=== PATIENT | male | born 1990 | race Two or more races ===

== ENCOUNTER → 2023-07-15 | Outpatient (CLI) | payer MEDICAID ==
[~2023-07-15] VITALS: Ht 167.6 cm; Wt 61.7 kg
== END | disposition home or self-care (01) ==
LOC: Rad HDHVI 08:26
PROVIDERS: ATTEND Internal Medicine Cardiovascular Disease
DX: I13.2 Hypertensive heart and chronic kidney disease with heart failure and with stage 5 chronic kidney disease, or end stage renal disease (principal); I50.9 Heart failure, unspecified; N18.6 End stage renal disease; E78.5 Hyperlipidemia, unspecified; Z82.49 Family history of ischemic heart disease and other diseases of the circulatory system
CPT/HCPCS: 78452; 93017; 96374; A9500

== ENCOUNTER → 2023-11-16 | Outpatient (CLI) | payer MEDICAID ==
[~2023-11-16] MED LIST: ASPI-543 PO; ATOR40TA52 PO; CALC0.25 PO; CALC667C PO; CLON0.1T PO; FURO40TA4 PO; METO-158 PO; METOPROLOL SUCCINATE XL 50 MG TAB PO ONE; PANT40T PO; SACU1TAB7 PO; cloNIDine HCL 0.1 MG TAB PO ONE
[2023-11-16 11:50] VITALS: BP 201/124; PULSE 118; RESP 16; O2SAT 99
[2023-11-16] MEDS: cloNIDine HCL 0.1 MG TAB ONE ×2 (12:25→13:40)
[2023-11-16] MEDS: METOPROLOL SUCCINATE XL 50 MG TAB PO ONE (12:26)
[2023-11-16] MEDS: cloNIDine HCL 0.1 MG TAB PO ONE (13:40)
[2023-11-16 14:56] VITALS: BP 187/102; PULSE 102; RESP 16; O2SAT 99
== END | disposition home or self-care (01) ==
LOC: Rad HDHVI 11:48
PROVIDERS: ATTEND Internal Medicine Cardiovascular Disease
DX: Z01.818 Encounter for other preprocedural examination (principal); R00.0 Tachycardia, unspecified; R94.31 Abnormal electrocardiogram [ECG] [EKG]; I11.0 Hypertensive heart disease with heart failure; I50.23 Acute on chronic systolic (congestive) heart failure; R06.02 Shortness of breath
CPT/HCPCS: 71046; 93005; G0463

== ENCOUNTER 2023-11-19 07:53 | Day surgery (SDC) | payer MEDICAID ==
[2023-11-17 10:52] LABS: Basophils # (auto) 0.2 10 ^3/uL (0-0.2); Basophils % (auto) 3.1 % (0.0-2.0); Eosinophils # (auto) 0.3 10 ^3/uL (0-0.8); Eosinophils % (auto) 3.9 % (0.0-7.0); Hematocrit 29.7 % (41.0-53.0); Hemoglobin 10.2 g/dL (13.5-17.5); Lymphocytes # (auto) 1.3 10 ^3/uL (0.4-5.4); Lymphocytes % (auto) 20.7 % (10.0-50.0); Mean Corpuscular Hemoglobin 32.1 pg (28.0-32.0); Mean Corpuscular Hgb Conc. 34.5 g/dL (32.0-36.0); Mean Corpuscular Volume 93.2 fL (80.0-100.0); Monocytes # (auto) 0.7 10 ^3/uL (0-1.3); Monocytes % (auto) 10.7 % (0.0-12.0); Neutrophils % (auto) 61.6 % (37.0-80.0); Platelet Count (auto) 186 10^3/uL (140-450); Red Blood Cells 3.19 10^6/uL (4.5-5.90); Red Cell Distribution Width 17.2 % (11.8-14.3); White Blood Cell 6.5 10^3/uL (4.4-10.8)
[2023-11-17 11:22] LABS: Anion Gap 6 (5-15); Carbon Dioxide 30 mmol/L (20-30); Chloride 98 mmol/L (98-107); Potassium 3.9 mmol/L (3.5-5.1); Sodium 134 mmol/L (136-145)
[2023-11-17 11:23] LABS: Calcium 9.6 mg/dL (8.7-10.4)
[2023-11-17 11:24] LABS: INR 1.08 (0.9-1.15); Partial Thromboplastin Time 31.3 SEC (24.5-34.5); Prothrombin Time 11.4 sec (9.3-11.8)
[2023-11-17 11:28] LABS: BUN/Creatinine Ratio 3.4 (10.0-20.0); Blood Urea Nitrogen 23 mg/dL (9-23); Glucose 97 mg/dL (74-106); Triglycerides 114 mg/dL (< 150)
[2023-11-17 11:29] LABS: LDL Cholesterol 111 mg/dL (< 100)
[2023-11-17 11:30] LABS: Cholesterol 201 mg/dL (< 200); HDL Cholesterol 70 mg/dL (40-59)
[~2023-11-19] VITALS: Ht 170.2 cm; Wt 64.4 kg
[~2023-11-19 07:53] MED LIST changes: -METOPROLOL SUCCINATE XL 50 MG TAB PO ONE; -cloNIDine HCL 0.1 MG TAB PO ONE
[2023-11-19] MEDS ORDERED: fentaNYL CITRATE 100 MCG/2 ML VL ONE (08:39)
[2023-11-19] MEDS ORDERED: ANGIOMAX 250 MG VIAL IV ONE (08:39)
[2023-11-19] MEDS ORDERED: LIDOCAINE 2%HCL (LOCAL ANESTH.) INJ 20ML MDV ONE (08:40)
[2023-11-19] MEDS ORDERED: SODIUM CHL 0.9% 0 ML ONE (08:40)
[2023-11-19] MEDS ORDERED: MIDAZOLAM HCL 2MG/2ML 2ml VIAL (1mg/ml) ONE (08:40)
[2023-11-19] MEDS ORDERED: IODIXANOL 320MG/ML 100ML BTL IV ONE (09:00)
[2023-11-19] MEDS ORDERED: hydrALAZINE HCL 20 MG/ML VL ONE (09:29)
[2023-11-19] MEDS ORDERED: SACUBITRIL-VALSARTAN 24mg/26mg TAB PO STA (12:07)
== END 2023-11-19 12:35 | disposition home or self-care (01) ==
LOC: CATH 07:53
PROVIDERS: ATTEND Internal Medicine Cardiovascular Disease
DX: R94.39 Abnormal result of other cardiovascular function study (principal); I13.11 Hypertensive heart and chronic kidney disease without heart failure, with stage 5 chronic kidney disease, or end stage renal disease; N18.6 End stage renal disease; Z79.82 Long term (current) use of aspirin; Z99.2 Dependence on renal dialysis
CPT/HCPCS: 36415; 80048; 80061; 85025; 85610; 85730; 93458; C1760; C1894; J0360; J2250; J3010; J7030; 99152; Q9967

== ENCOUNTER 2023-11-30 10:47 | Inpatient (IN) | payer MEDICAID ==
[~2023-11-30] VITALS: Ht 170.2 cm; Wt 65.7 kg
[2023-11-30] MEDS: ALBUTEROL SULF 2.5 MG/0.5ML(0.5%) NEB SOLN NEB ONE (13:17)
[2023-11-30 13:38] LABS: Basophils # (auto) 0.1 10 ^3/uL (0-0.2); Basophils % (auto) 1.3 % (0.0-2.0); Eosinophils # (auto) 0.2 10 ^3/uL (0-0.8); Eosinophils % (auto) 1.8 % (0.0-7.0); Hematocrit 27.2 % (41.0-53.0); Hemoglobin 9.5 g/dL (13.5-17.5); Lymphocytes # (auto) 1.4 10 ^3/uL (0.4-5.4); Lymphocytes % (auto) 15.6 % (10.0-50.0); Mean Corpuscular Hemoglobin 33.1 pg (28.0-32.0); Mean Corpuscular Hgb Conc. 34.8 g/dL (32.0-36.0); Monocytes # (auto) 0.6 10 ^3/uL (0-1.3); Monocytes % (auto) 6.3 % (0.0-12.0); Neutrophils # (auto) 6.6 10 ^3/uL (1.6-8.6); Platelet Count (auto) 259 10^3/uL (140-450); Red Blood Cells 2.86 10^6/uL (4.5-5.90); Red Cell Distribution Width 16.7 % (11.8-14.3); White Blood Cell 8.8 10^3/uL (4.4-10.8)
[2023-11-30 13:53] LABS: Alanine Aminotransferase 18 U/L (7-40); Albumin 4.2 g/dL (3.2-4.8); Alkaline Phosphatase 84 U/L (46-116); Anion Gap 12 (5-15); Aspartate Aminotransferase 11 U/L (13-40); BUN/Creatinine Ratio 4.2 (10.0-20.0); Blood Urea Nitrogen 51 mg/dL (9-23); Calcium 9.4 mg/dL (8.7-10.4); Carbon Dioxide 24 mmol/L (20-30); Chloride 100 mmol/L (98-107); Glucose 134 mg/dL (74-106); Potassium 5.5 mmol/L (3.5-5.1); Sodium 136 mmol/L (136-145)
[2023-11-30 13:54] LABS: Bilirubin, Total 0.4 mg/dL (0.2-1.0); Total Protein 6.3 g/dL (5.7-8.2)
[2023-11-30] MEDS: SODIUM ZIRCONIUM CYCL 10 GM PAK PO ONE (14:25)
[2023-11-30 15:29] LABS: COVID19 ANTIGEN SOFIA FIA NEGATIVE (NEGATIVE)
[2023-11-30] MEDS: cefTRIAXone 1GM/50ML D5W 50 ML IV ONE (17:18)
[2023-11-30] MEDS ORDERED: ONDANSETRON HCL 4 MG/2 ML VIAL IV PRN (17:30)
[2023-11-30] MEDS ORDERED: DOCUSATE SOD 100 MG CAP PO PRN (17:30)
[2023-11-30] MEDS ORDERED: HYDROcodone-ACET 5/325MG TAB PO PRN (17:30)
[2023-11-30] MEDS ORDERED: MORPHINE SULFATE INJ 2 MG/ml SYRG IV PRN (18:15)
[2023-11-30] MEDS ORDERED: NITROGLYCERIN 0.4 MG SL TAB SL PRN (18:15)
[2023-11-30] MEDS: SODIUM CHLOR 0.9% PF (SALINE LOCK) 10ML VIAL/SYR IV SCH (22:00)
[2023-11-30] MEDS: SEVELAMER 800 MG TAB PO SCH (22:55)
[2023-11-30] MEDS: amLODIPine BESYLATE 5 MG TAB PO ONE (22:55)
[2023-11-30] MEDS: FAMOTIDINE (10MG/ML) 2ML VL IV ONE (22:56)
[2023-11-30] MEDS: CARVEDILOL 12.5 MG TAB PO SCH (22:56)
[2023-11-30] MEDS: ATORVASTATIN 20 MG TAB PO SCH (22:57)
[2023-12-01] MEDS: hydrALAZINE HCL 20 MG/ML VL IV PRN (00:16)
[2023-12-01 04:03] LABS: Basophils # (auto) 0.2 10 ^3/uL (0-0.2); Basophils % (auto) 1.8 % (0.0-2.0); Eosinophils # (auto) 0.2 10 ^3/uL (0-0.8); Eosinophils % (auto) 2.4 % (0.0-7.0); Hemoglobin 9.8 g/dL (13.5-17.5); Lymphocytes # (auto) 1.3 10 ^3/uL (0.4-5.4); Lymphocytes % (auto) 15.2 % (10.0-50.0); Mean Corpuscular Hemoglobin 32.9 pg (28.0-32.0); Mean Corpuscular Hgb Conc. 33.7 g/dL (32.0-36.0); Mean Corpuscular Volume 97.7 fL (80.0-100.0); Monocytes # (auto) 0.5 10 ^3/uL (0-1.3); Monocytes % (auto) 6.5 % (0.0-12.0); Neutrophils # (auto) 6.2 10 ^3/uL (1.6-8.6); Neutrophils % (auto) 74.1 % (37.0-80.0); Nucleated Red Blood Cells % 0.1 %; Platelet Count (auto) 269 10^3/uL (140-450); Red Blood Cells 2.97 10^6/uL (4.5-5.90); Red Cell Distribution Width 17.2 % (11.8-14.3); White Blood Cell 8.4 10^3/uL (4.4-10.8)
[2023-12-01 04:18] LABS: Alanine Aminotransferase 14 U/L (7-40); Albumin 4.3 g/dL (3.2-4.8); Alkaline Phosphatase 83 U/L (46-116); Anion Gap 17 (5-15); Aspartate Aminotransferase 10 U/L (13-40); Bilirubin, Total 0.3 mg/dL (0.2-1.0); Blood Urea Nitrogen 54 mg/dL (9-23); Calcium 9.3 mg/dL (8.7-10.4); Carbon Dioxide 19 mmol/L (20-30); Chloride 99 mmol/L (98-107); Glucose 110 mg/dL (74-106); Sodium 135 mmol/L (136-145); Total Protein 6.5 g/dL (5.7-8.2)
[2023-12-01 04:45] LABS: Urine Bacteria None Seen /hpf (None Seen)
[2023-12-01] MEDS: hydrALAZINE HCL 20 MG/ML VL IV ONE (04:45)
[2023-12-01 04:50] LABS: Urine Blood TRACE /uL (Negative); Urine Clarity Clear (Clear); Urine Color Colorless (Yellow); Urine Protein, UAD 3+ (Negative); Urine Specific Gravity 1.007 (1.001-1.035); Urine Urobilinogen Normal (Negative); Urine WBC 3 /hpf (0 - 3)
[2023-12-01 08:50] VITALS: BP 169/99; PULSE 109; RESP 20; TEMP 98.2; O2SAT 99
[2023-12-01 09:33] VITALS: BP 168/101; PULSE 101; RESP 20; TEMP 98.2; O2SAT 99
[2023-12-01] MEDS: ASPirin 81 mg TAB PO SCH (09:55)
[2023-12-01] MEDS: amLODIPine BESYLATE 5 MG TAB PO SCH (09:56)
[2023-12-01] MEDS: B-COMPLEX W/ C & FOLIC ACID(NEPHROVITE TAB) PO SCH (09:57)
[2023-12-01 13:00] VITALS: BP 175/116; PULSE 110; RESP 20; TEMP 98.2; O2SAT 95
[2023-12-01 16:58] VITALS: BP 169/97; PULSE 113; RESP 20; TEMP 98.2; O2SAT 97
[2023-12-01] MEDS: FUROSEMIDE 100 MG/10ML VIAL IV SCH (18:12)
[2023-12-01] MEDS: ACETAMINOPHEN 325 MG TAB PO PRN (19:53)
[2023-12-01 20:00] VITALS: PULSE 99
[2023-12-01 21:00] VITALS: BP 174/108; PULSE 100; RESP 22; TEMP 98.1; O2SAT 97
[2023-12-01] MEDS: EPOETIN ALFA-EPBX 4,000 UNIT/ML VIAL SC ONE (21:00)
[2023-12-01] MEDS: guaiFENesin-DM 100/10mg/5ml SYR PO PRN (23:16)
[2023-12-02] VITALS (8 sets, daily range): BP systolic 152–175; BP diastolic 103–124; PULSE 93–112; RESP 16–20; TEMP 37.2; O2SAT 93–99
[2023-12-02] MEDS: cloNIDine HCL 0.1 MG TAB PO ONE ×2 (03:09→06:30)
[2023-12-02 07:35] LABS: Rapid Influenza A Negative (Negative); Rapid Influenza B Negative (Negative)
[2023-12-02] MEDS: FAMOTIDINE (10MG/ML) 2ML VL IV SCH (08:08)
[2023-12-02] MEDS: hydrALAZINE HCL 25 MG TAB PO ONE (08:30)
[2023-12-02] MEDS: SODIUM CHL 0.9% 1000 ML BAG XX ONE ×2 (10:15→13:21)
[2023-12-02] MEDS ORDERED: DEXT1SYP9 PO (13:36)
[2023-12-02] MEDS ORDERED: SEVE800T7 PO (13:36)
[2023-12-02] MEDS ORDERED: HYDR25TA87 PO (13:36)
[2023-12-02] MEDS ORDERED: CARV-216 PO (13:36)
[2023-12-02] MEDS: hydrALAZINE HCL 25 MG TAB PO SCH (13:44)
[2023-12-02] MEDS ORDERED: CARVEDILOL 12.5 MG TAB PO SCH (22:00)
[2023-12-03 08:58] LABS: Hepatitis B Surface Antigen Negative (Negative)
[2023-12-03 09:15] LABS: Hepatitis A Ab IgM Negative
[2023-12-03 09:18] LABS: Hepatitis B Core IgM Negative; Hepatitis C Antibody Negative (Negative)
== END 2023-12-02 13:58 | disposition home or self-care (01) | DRG 425 ==
LOC: ER 10:47 → TELE 18:17 → TELE-WESTW 12-01 08:52
PROVIDERS: ADMIT Internal Medicine Pulmonary Disease; ATTEND Surgery
PROC: 5A1D70Z Performance of Urinary Filtration, Intermittent, Less than 6 Hours Per Day (ICD-10-PCS; principal; 2023-12-02)
DX: E87.70 Fluid overload, unspecified (principal); I12.0 Hypertensive chronic kidney disease with stage 5 chronic kidney disease or end stage renal disease; J81.1 Chronic pulmonary edema; D63.1 Anemia in chronic kidney disease; E83.39 Other disorders of phosphorus metabolism; E87.5 Hyperkalemia; N18.6 End stage renal disease; E87.1 Hypo-osmolality and hyponatremia; I16.1 Hypertensive emergency; Z20.822 Contact with and (suspected) exposure to COVID-19; J40 Bronchitis, not specified as acute or chronic; E78.5 Hyperlipidemia, unspecified; Z99.2 Dependence on renal dialysis
CPT/HCPCS: 36415; 71045; 80053; 80074; 81001; 83036; 83880; 85025; 86850; 86900; 86901; 87081; 87426; 87804; 90935; 93970; 94640; G0378; J1642; J3490

== ENCOUNTER 2023-12-08 03:33 | Inpatient (IN) | payer MEDICAID ==
[~2023-12-08] VITALS: Ht 167.6 cm; Wt 65.3 kg
[~2023-12-08 03:33] MED LIST changes: +CARV-216 PO; +DEXT1SYP9 PO; +HYDR25TA87 PO; -METO-158 PO; +SEVE800T7 PO
[2023-12-08 03:45] VITALS: PULSE 115; RESP 16; O2SAT 94
[2023-12-08] MEDS: LABETALOL HCL 20 MG/4 ML VL IV ONE ×3 (04:00→05:48)
[2023-12-08 04:32] LABS: Basophils # (auto) 0.2 10 ^3/uL (0-0.2); Basophils % (auto) 2.1 % (0.0-2.0); Eosinophils # (auto) 0.1 10 ^3/uL (0-0.8); Eosinophils % (auto) 1.2 % (0.0-7.0); Hematocrit 29.6 % (41.0-53.0); Lymphocytes % (auto) 9.1 % (10.0-50.0); Mean Corpuscular Hemoglobin 32.6 pg (28.0-32.0); Mean Corpuscular Hgb Conc. 33.8 g/dL (32.0-36.0); Mean Corpuscular Volume 96.6 fL (80.0-100.0); Monocytes # (auto) 0.4 10 ^3/uL (0-1.3); Monocytes % (auto) 3.8 % (0.0-12.0); Neutrophils # (auto) 9.3 10 ^3/uL (1.6-8.6); Neutrophils % (auto) 83.8 % (37.0-80.0); Nucleated Red Blood Cells % 0.1 %; Platelet Count (auto) 285 10^3/uL (140-450); Red Blood Cells 3.06 10^6/uL (4.5-5.90); Red Cell Distribution Width 17.5 % (11.8-14.3); White Blood Cell 11.2 10^3/uL (4.4-10.8)
[2023-12-08 04:36] LABS: Alanine Aminotransferase 19 U/L (7-40); Albumin 4.3 g/dL (3.2-4.8); Alkaline Phosphatase 109 U/L (46-116); Anion Gap 15 (5-15); Aspartate Aminotransferase 25 U/L (13-40); BUN/Creatinine Ratio 6.1 (10.0-20.0); Blood Urea Nitrogen 75 mg/dL (9-23); Calcium 9.1 mg/dL (8.7-10.4); Carbon Dioxide 20 mmol/L (20-30); Chloride 97 mmol/L (98-107); Glucose 117 mg/dL (74-106); Magnesium 2.3 mg/dL (1.6-2.6); Sodium 132 mmol/L (136-145)
[2023-12-08 04:37] LABS: Bilirubin, Total 0.2 mg/dL (0.2-1.0); Total Protein 6.7 g/dL (5.7-8.2)
[2023-12-08] MEDS: FUROSEMIDE 100 MG/10ML VIAL IV ONE (04:41)
[2023-12-08] MEDS: cloNIDine HCL 0.1 MG TAB PO ONE (04:45)
[2023-12-08] MEDS: hydrALAZINE HCL 20 MG/ML VL IV ONE (04:45)
[2023-12-08 05:13] LABS: Potassium 6.6 mmol/L (3.5-5.1)
[2023-12-08] MEDS: SODIUM ZIRCONIUM CYCL 10 GM PAK PO ONE ×3 (06:06→22:37)
[2023-12-08] MEDS: CALCIUM GLUC 1,000mg/50ml-NS 50 ML IV ONE (06:07)
[2023-12-08] MEDS: SODIUM BICARB 8.4% 50Meq/50ml SYR Vial IV ONE (06:07)
[2023-12-08] MEDS: DEXTROSE (50%) 50ML SYRG IV ONE (06:12)
[2023-12-08] MEDS: InsuLIN REG 1unit/0.01ml Soln (100units/ml) IV ONE (06:15)
[2023-12-08 08:56] LABS: Urine Bacteria None Seen /hpf (None Seen)
[2023-12-08 09:10] LABS: Urine Blood 1+ /uL (Negative); Urine Clarity Clear (Clear); Urine Color Colorless (Yellow); Urine Protein, UAD 3+ (Negative); Urine Specific Gravity 1.009 (1.001-1.035); Urine Urobilinogen Normal (Negative); Urine WBC 4 /hpf (0 - 3)
[2023-12-08 10:34] VITALS: PULSE 92; RESP 11; O2SAT 99
[2023-12-08] MEDS ORDERED: HYDROcodone-ACET 5/325MG TAB PO PRN (13:45)
[2023-12-08] MEDS ORDERED: DOCUSATE SOD 100 MG CAP PO PRN (13:45)
[2023-12-08] MEDS ORDERED: ONDANSETRON HCL 4 MG/2 ML VIAL IV PRN (13:45)
[2023-12-08] MEDS: SODIUM CHLOR 0.9% PF (SALINE LOCK) 10ML VIAL/SYR IV SCH (14:23)
[2023-12-08] MEDS: amLODIPine BESYLATE 5 MG TAB PO ONE (14:26)
[2023-12-08] MEDS ORDERED: MORPHINE SULFATE INJ 2 MG/ml SYRG IV PRN (14:45)
[2023-12-08] MEDS ORDERED: NITROGLYCERIN 0.4 MG SL TAB SL PRN (14:45)
[2023-12-08] MEDS: SEVELAMER 800 MG TAB PO SCH (18:40)
[2023-12-08 19:32] LABS: Chloride 98 mmol/L (98-107); Sodium 135 mmol/L (136-145)
[2023-12-08 19:33] LABS: Anion Gap 18 (5-15); Calcium 9.3 mg/dL (8.7-10.4); Carbon Dioxide 19 mmol/L (20-30)
[2023-12-08 19:38] LABS: BUN/Creatinine Ratio 5.7 (10.0-20.0); Blood Urea Nitrogen 77 mg/dL (9-23); Glucose 109 mg/dL (74-106)
[2023-12-08 19:47] LABS: Potassium 5.7 mmol/L (3.5-5.1)
[2023-12-08] MEDS: cefTRIAXone 1GM/50ML D5W 50 ML IV SCH (20:02)
[2023-12-08] MEDS: BUMETANIDE 2.5mg/10ml (0.25 mg/ml) INJ IV SCH (20:02)
[2023-12-08] MEDS ORDERED: FAMOTIDINE (10MG/ML) 2ML VL IV SCH (22:00)
[2023-12-08] MEDS: cloNIDine HCL 0.1 MG TAB PO PRN (22:36)
[2023-12-08] MEDS: ATORVASTATIN 20 MG TAB PO SCH (22:36)
[2023-12-08] MEDS: CARVEDILOL 12.5 MG TAB PO SCH (22:37)
[2023-12-08] MEDS: hydrALAZINE HCL 20 MG/ML VL IV PRN (23:19)
[2023-12-08 23:22] VITALS: BP 144/104; PULSE 114; PULSE 115; RESP 18; TEMP 98.2; O2SAT 94
[2023-12-08 23:30] VITALS: BP 144/100; PULSE 101; RESP 16; O2SAT 95
[2023-12-09] VITALS (7 sets, daily range): BP systolic 126–160; BP diastolic 85–101; PULSE 20–100; RESP 16–95; TEMP 98.2; O2SAT 86–98
[2023-12-09] MEDS: SODIUM CHL 0.9% 1000 ML BAG XX ONE (06:54)
[2023-12-09 07:16] LABS: Basophils # (auto) 0.1 10 ^3/uL (0-0.2); Basophils % (auto) 1.5 % (0.0-2.0); Eosinophils # (auto) 0.2 10 ^3/uL (0-0.8); Eosinophils % (auto) 2.7 % (0.0-7.0); Hemoglobin 8.9 g/dL (13.5-17.5); Lymphocytes # (auto) 1.3 10 ^3/uL (0.4-5.4); Lymphocytes % (auto) 14.9 % (10.0-50.0); Mean Corpuscular Hgb Conc. 34.2 g/dL (32.0-36.0); Mean Corpuscular Volume 96.5 fL (80.0-100.0); Monocytes # (auto) 0.6 10 ^3/uL (0-1.3); Monocytes % (auto) 6.9 % (0.0-12.0); Neutrophils # (auto) 6.5 10 ^3/uL (1.6-8.6); Platelet Count (auto) 220 10^3/uL (140-450); Red Blood Cells 2.69 10^6/uL (4.5-5.90); Red Cell Distribution Width 17.4 % (11.8-14.3); White Blood Cell 8.8 10^3/uL (4.4-10.8)
[2023-12-09 07:28] LABS: Alanine Aminotransferase 15 U/L (7-40); Alkaline Phosphatase 79 U/L (46-116); Anion Gap 18 (5-15); BUN/Creatinine Ratio 6.6 (10.0-20.0); Carbon Dioxide 20 mmol/L (20-30); Chloride 97 mmol/L (98-107); Glucose 101 mg/dL (74-106); Sodium 135 mmol/L (136-145)
[2023-12-09 07:29] LABS: Aspartate Aminotransferase 20 U/L (13-40); Bilirubin, Total 0.2 mg/dL (0.2-1.0); Total Protein 6.1 g/dL (5.7-8.2)
[2023-12-09 07:34] LABS: Potassium 6.1 mmol/L (3.5-5.1)
[2023-12-09 07:35] LABS: Blood Urea Nitrogen 95 mg/dL (9-23)
[2023-12-09] MEDS: ACETAMINOPHEN 325 MG TAB PO PRN (09:07)
[2023-12-09] MEDS: ASPirin 81 mg TAB PO SCH (10:28)
[2023-12-09] MEDS: amLODIPine BESYLATE 5 MG TAB PO SCH (10:30)
[2023-12-09] MEDS: B-COMPLEX W/ C & FOLIC ACID(NEPHROVITE TAB) PO SCH (10:30)
[2023-12-09] MEDS: FAMOTIDINE (10MG/ML) 2ML VL IV SCH (10:30)
[2023-12-09] MEDS: hydrALAZINE HCL 25 MG TAB PO SCH (15:36)
[2023-12-09] MEDS: DOXYCYCLINE 100 MG TAB/CAP PO SCH (15:37)
[2023-12-10 01:00] VITALS: BP 142/99; PULSE 100; RESP 16; TEMP 98.1; O2SAT 98
[2023-12-10 04:52] VITALS: BP 144/96; PULSE 95; RESP 17; TEMP 98.8; O2SAT 94
[2023-12-10] MEDS ORDERED: SODIUM CHL 0.9% 1000 ML BAG XX ONE (07:00)
[2023-12-10 08:00] VITALS: PULSE 103; PULSE 83; RESP 16; O2SAT 98
[2023-12-10 08:47] VITALS: BP 163/93; PULSE 91; RESP 18; TEMP 97.4; O2SAT 97
[2023-12-10] MEDS ORDERED: DOXY1CAP57 PO (09:33)
[2023-12-10 10:38] LABS: Chloride 101 mmol/L (98-107); Sodium 139 mmol/L (136-145)
[2023-12-10 10:39] LABS: Anion Gap 6 (5-15)
[2023-12-10 10:40] LABS: Calcium 9.8 mg/dL (8.7-10.4)
[2023-12-10 10:44] LABS: BUN/Creatinine Ratio 5.8 (10.0-20.0); Glucose 103 mg/dL (74-106)
[2023-12-10 10:45] LABS: Blood Urea Nitrogen 26 mg/dL (9-23); Carbon Dioxide 32 mmol/L (20-30); Potassium 3.1 mmol/L (3.5-5.1)
[2023-12-10] MEDS: FAMOTIDINE (10MG/ML) 2ML VL IV SCH (11:35)
[2023-12-10 12:05] VITALS: BP 166/102; PULSE 91; RESP 18; TEMP 36.3; O2SAT 95
[2023-12-10 13:00] VITALS: BP 155/94; PULSE 81; RESP 18; TEMP 98.4; O2SAT 96
== END 2023-12-10 15:31 | disposition home or self-care (01) | DRG 425 ==
LOC: ER 03:33 → TELE 14:32 → TELE-CENTR 22:57
PROVIDERS: ADMIT Nurse Practitioner Family; ATTEND Internal Medicine Geriatric Medicine
PROC: 5A1D70Z Performance of Urinary Filtration, Intermittent, Less than 6 Hours Per Day (ICD-10-PCS; principal; 2023-12-09)
DX: E87.70 Fluid overload, unspecified (principal); J96.01 Acute respiratory failure with hypoxia; J15.69 Pneumonia due to other Gram-negative bacteria; I12.0 Hypertensive chronic kidney disease with stage 5 chronic kidney disease or end stage renal disease; J15.9 Unspecified bacterial pneumonia; N18.6 End stage renal disease; J81.0 Acute pulmonary edema; D63.1 Anemia in chronic kidney disease; E87.5 Hyperkalemia; I16.0 Hypertensive urgency; E78.5 Hyperlipidemia, unspecified; Z99.2 Dependence on renal dialysis; Z83.3 Family history of diabetes mellitus
CPT/HCPCS: 36415; 71045; 80048; 80053; 81001; 82962; 83735; 83880; 84484; 85025; 90935; 93005; 99291; G0378; J1642; J1815; J2405; J3490